=== PATIENT | male | born 1960 | race African-American/Black ===

== ENCOUNTER 2017-07-23 23:17 | Emergency (ER) | payer SELFPAY ==
[~2017-07-23] VITALS: Ht 182.9 cm; Wt 96.0 kg
[~2017-07-23 23:17] MED LIST: LISI10TA PO; MECL25 PO; VIST25CA PO
[2017-07-23 23:19] VITALS: BP 150/81; PULSE 98; RESP 16; TEMP 97.7; O2SAT 97
--- NOTE | 2017-07-24 00:29 | PD ---
HPI Chief Complaint: Back/ Neck Pain or Injury Time Seen by Provider: 00:01 Travel History International Travel<30 days: No Contact w/Intl Traveler<30days: No Traveled to known affect area: No History of Present Illness HPI This patient complains of low back pain. He says that he slipped and fell while in [employer]. His left leg slipped forward and his right stayed planted. No direct fall onto the back. Duration 1 hour. Symptoms severity is moderate. No neurologic complaint PFSH Past Medical History Depression: Yes Hypertension: Yes Migraines: Yes Tetanus Vaccination: < 5 Years Influenza Vaccination: No Past Surgical History Gynecologic Surgery: Yes (Prostate Cancer ) Other Surgery: Yes (RIGHT KNEE ARTHROSCOPY) Social History Alcohol Use: No Tobacco Use: Yes (1 ppd) Substance Use: No Allergies-Medications (Allergen,Severity, Reaction): Coded Allergies: No Known Allergies (Verified , 12/08/10) Reported Meds & Prescriptions Reported Meds & Active Scripts Active Vistaril (Hydroxyzine Pamoate) 25 Mg Cap 25 Mg PO Q 8 HRS PRN ANXIETY Antivert (Meclizine HCl) 25 Mg Tab 25 Mg PO QIDPRN Reported Lisinopril/Hctz 20/12.5 (HCTZ/Lisinopril) Tab 1 Tab PO DAILY Review of Systems General / Constitutional: No: Fever Eyes: No: Visual changes HENT: No: Headaches Cardiovascular: No: Chest Pain or Discomfort Respiratory: No: Shortness of Breath Gastrointestinal: No: Abdominal Pain Genitourinary: No: Dysuria Musculoskeletal: Positive: Pain Skin: No Rash Neurologic: No: Weakness Psychiatric: No: Depression Endocrine: No: Polydipsia Hematologic/Lymphatic: No: Easy Bruising Physical Exam Narrative GENERAL: Well-nourished, well-developed patient in no apparent distress. SKIN: Focused skin assessment reveals no rash and nodules. Skin is Warm and dry. HEAD: Atraumatic. Normocephalic. EYES: Pupils equal and round. No scleral icterus. No injection or drainage. ENT: No nasal bleeding or discharge. Mucous membranes pink and moist. NECK: Trachea midline. No JVD. CARDIOVASCULAR: Regular rate and rhythm. No murmur appreciated. RESPIRATORY: No accessory muscle use. Clear to auscultation. Breath sounds equal bilaterally. GASTROINTESTINAL: Abdomen soft, non-tender, nondistended. Hepatic and splenic margins not palpable. MUSCULOSKELETAL: No obvious deformities. No clubbing. No cyanosis. No edema. NEUROLOGICAL: Awake and alert. No obvious cranial nerve deficits. Motor grossly within normal limits. Normal speech. PSYCHIATRIC: Appropriate mood and affect; insight and judgment normal. Data Data Last Documented VS Vital Signs Date Time Temp Pulse Resp B/P (MAP) Pulse Ox O2 Delivery O2 Flow Rate FiO2 07/23/17 23:19 97.7 98 16 150/81 (104) 97 Room Air Orders Orders Spine, Lumbar - Ltd (Ap & Lat) (07/24/17 ) Ketorolac Inj (Toradol Inj) (07/24/17 00:30) MDM Medical Decision Making Medical Screen Exam Complete: Yes Emergency Medical Condition: Yes Medical Record Reviewed: Yes Differential Diagnosis Lumbar strain, sciatica, compression fracture Narrative Course I have reviewed the patient's electronic medical record. I reviewed his lumbar spine x-rays which show minor arthritic change but no fracture No objective findings on exam He is neurologically intact I gave him Toradol injection. Tramadol prescribed Diagnosis Primary Impression: Low back pain Qualified Codes: M54.5 - Low back pain Additional Instructions: The patient was advised to follow up with their physician and return if they worsen. The patient was warned about potential sedation for the medications they will receive on prescription. Med/Other Pt SpecificInfo: Prescription(s) given Scripts Tramadol (Tramadol) 50 Mg Tab 50 MG PO Q6H Y for PAIN, #20 TAB 0 Refills Prov: Rogelio Larsen MD 07/24/17 Disposition: 01 DISCHARGE HOME Condition: Stable Rogelio Larsen MD Jul 24, 2017 00:29
[2017-07-24] MEDS ORDERED: KETOROLAC TROMETHAMINE 60 MG/2 ML (IM) VIAL IM ONE (00:30)
--- NOTE | 2017-07-24 01:22 | RADRPT ---
EXAM DATE/TIME: 07/24/2017 01:04 [facility] COMPARISON: No previous studies available for comparison. INDICATIONS : Back pain from a slip and fall. MEDICAL HISTORY : None. SURGICAL HISTORY : None. ENCOUNTER: Initial ACUITY: 1 day PAIN SCORE: 10/10 LOCATION: Bilateral Back FINDINGS: Two view examination was performed. There are five non-rib bearing vertebral bodies. The vertebral bodies are in normal alignment without evidence of subluxation or scoliosis. The disc spaces are rudy ntained. The pedicles are intact. Bony mineralization is normal. No fracture is identified. CONCLUSION: 1. Mild degenerative disc disease. No acute fracture or spondylolisthesis. James Faustin MD on July 24, 2017 at 1:19 Board Certified Radiologist. This report was verified electronically.
[2017-07-24] MEDS ORDERED: TRAM50TA PO (01:45)
== END 2017-07-24 01:55 | disposition home or self-care (01) ==
LOC: NEPC 23:17
DX: M54.5 Low back pain (principal); F32.9 Major depressive disorder, single episode, unspecified; I10 Essential (primary) hypertension; F17.200 Nicotine dependence, unspecified, uncomplicated; Z79.899 Other long term (current) drug therapy
CPT/HCPCS: 72100; 96372; 99284; J1885

== ENCOUNTER 2017-11-21 00:43 | Emergency (ER) | payer SELFPAY ==
[~2017-11-21] VITALS: Ht 182.9 cm; Wt 103.1 kg
[~2017-11-21 00:43] MED LIST changes: +TRAM50TA PO
[2017-11-21 00:47] VITALS: BP 162/79; PULSE 63; TEMP 97.6
[2017-11-21] MEDS ORDERED: ATEN50TA PO (00:57)
--- NOTE | 2017-11-21 01:03 | PD ---
HPI Chief Complaint: Pain: Acute or Chronic Time Seen by Provider: 00:49 Travel History International Travel<30 days: No Contact w/Intl Traveler<30days: No Traveled to known affect area: No History of Present Illness HPI The patient is a 57-year-old female that complains of a cough for 4-5 days and has noted in the last day left anterior rib pain. It is difficult for him to sit up because of the pain and muscle attachments on those anterior lower ribs. He denies any fever. He smokes one pack a day. He is not short of breath. PFSH Past Medical History Depression: Yes Cardiovascular Problems: Yes Diminished Hearing: No Hypertension: Yes Migraines: Yes Tetanus Vaccination: Unknown Influenza Vaccination: No Past Surgical History Gynecologic Surgery: Yes (Prostate Cancer ) Other Surgery: Yes (RIGHT KNEE ARTHROSCOPY) Social History Alcohol Use: No Tobacco Use: Yes (1 ppd) Substance Use: No Allergies-Medications (Allergen,Severity, Reaction): Coded Allergies: No Known Allergies (Verified Adverse Reaction, Unknown, 11/21/17) Reported Meds & Prescriptions Reported Meds & Active Scripts Active Reported Atenolol 50 Mg Tab 50 Mg PO DAILY Review of Systems Except as stated in HPI: all other systems reviewed are Neg Physical Exam Narrative GENERAL: Well-nourished, well-developed patient. The patient's vital signs show blood pressure 162/79 but are otherwise normal. Oximetry is 97%. SKIN: Focused skin assessment warm/dry. No skin rash is seen. HEAD: Normocephalic. EYES: No scleral icterus. No injection or drainage. NECK: Supple, trachea midline. No JVD or lymphadenopathy. CARDIOVASCULAR: Regular rate and rhythm without murmurs, gallops, or rubs. RESPIRATORY: Breath sounds equal bilaterally. No accessory muscle use. Lungs clear to auscultation bilaterally. I can easily reproduce the patient's pain by pressing on the lower anterior ribs on the left. GASTROINTESTINAL: Abdomen soft, non-tender, nondistended. MUSCULOSKELETAL: No cyanosis, or edema. BACK: Nontender without obvious deformity. No CVA tenderness. Data Data Last Documented VS Vital Signs Date Time Temp Pulse Resp B/P (MAP) Pulse Ox O2 Delivery O2 Flow Rate FiO2 11/21/17 00:58 18 11/21/17 00:47 97.6 63 162/79 (106) Orders Orders Chest, Pa & Lat (11/21/17 00:59) [facility] Medical Decision Making Medical Screen Exam Complete: Yes Emergency Medical Condition: Yes Medical Record Reviewed: Yes Interpretation(s) The chest x-ray, PA and lateral shows no acute cardiopulmonary disease. Differential Diagnosis Left anterior rib fracture, pleurisy, pneumonia, pneumothorax, pneumothorax Narrative Course The patient likely has left anterior rib fractures. These fractures are noted area that is cartilaginous and will not show up as a fracture on plain x-ray. The patient appears to have a cough fracture. Impression: Cough fracture Plan: The patient be given Motrin 800 mg 3 times daily as well as Percocet 5/ 325 to take every 6 hours. He should not drink alcohol or drive on the Percocet. Diagnosis Primary Impression: Rib fracture Additional Impression: Viral upper respiratory infection Additional Instructions: As we discussed, take the Motrin regularly, 1 tablet 3 times daily. The Percocet is for pain but do not drink alcohol or drive on the Percocet. As we also discussed, discontinue smoking. Med/Other Pt SpecificInfo: Prescription(s) given Scripts Oxycodone-Acetaminophen (Percocet) 5-325 mg Tab 2 TAB PO Q4H Y for PAIN, #21 TAB 0 Refills Prov: Cirilo Escalante MD 11/21/17 Ibuprofen (Ibuprofen) 800 Mg Tab 800 MG PO TID, #33 TAB 0 Refills Prov: Cirilo Escalante MD 11/21/17 Disposition: 01 DISCHARGE HOME Condition: Stable Cirilo Escalante MD Nov 21, 2017 01:03
--- NOTE | 2017-11-21 01:21 | RADRPT ---
EXAM DATE/TIME: 11/21/2017 01:08 [facility] COMPARISON: No previous studies available for comparison. INDICATIONS : Cough, left sided chest pain for 4 days MEDICAL HISTORY : None. SURGICAL HISTORY : None. ENCOUNTER: Initial ACUITY: 4 - 6 days PAIN SCORE: 8/10 LOCATION: Left chest FINDINGS: PA and lateral views of the chest. Minimal diffuse reticular opacity. This finding is often seen in p atients with history of smoking. Minimal patchy opacity at the lateral left lung base likely represen ting atelectasis. Cardiomediastinal silhouette within normal limits. No evidence of pleural effusion or pneumothorax. CONCLUSION: No acute cardiopulmonary disease identified. Jose L Rachel MD on November 21, 2017 at 1:16 Board Certified Radiologist. This report was verified electronically.
[2017-11-21] MEDS ORDERED: PERC5TAB12 PO (01:40)
[2017-11-21] MEDS ORDERED: IBUP1TAB7 PO (01:40)
[2017-11-21] MEDS ORDERED: KETOROLAC TROMETHAMINE 60 MG/2 ML (IM) VIAL IM ONE (01:45)
[2017-11-21 02:19] VITALS: BP 162/78
== END 2017-11-21 02:31 | disposition home or self-care (01) ==
LOC: PHED 00:43
DX: S22.39XA Fracture of one rib, unspecified side, initial encounter for closed fracture (principal); J06.9 Acute upper respiratory infection, unspecified; I10 Essential (primary) hypertension; F32.9 Major depressive disorder, single episode, unspecified; F17.210 Nicotine dependence, cigarettes, uncomplicated; Z85.46 Personal history of malignant neoplasm of prostate
CPT/HCPCS: 71020; 96372; 99284; J1885

== ENCOUNTER 2017-12-18 10:36 | Emergency (ER) | payer SELFPAY ==
[~2017-12-18] VITALS: Ht 182.9 cm; Wt 97.5 kg
[~2017-12-18 10:36] MED LIST changes: +ATEN50TA PO; +IBUP1TAB7 PO; -LISI10TA PO; -MECL25 PO; +PERC5TAB12 PO; -TRAM50TA PO; -VIST25CA PO
[2017-12-18 10:38] VITALS: BP 167/78; PULSE 66; RESP 16; O2SAT 99
--- NOTE | 2017-12-18 11:22 | PD ---
HPI Chief Complaint: Foreign Body Time Seen by Provider: 11:21 Travel History International Travel<30 days: No Contact w/Intl Traveler<30days: No Traveled to known affect area: No History of Present Illness HPI 57-year-old Afro[place] male presents to the emergency Department with a knee , erythema, and tearing from the right eye upon awakening this morning. Patient has no history of injury or foreign body to the area. Patient does not wear contacts. He states vision is okay except for the photophobia. He denies any other symptoms. His pain is currently 8 out of 10. He has no known drug allergies. PFSH Past Medical History Depression: Yes Cardiovascular Problems: Yes Diminished Hearing: No Hypertension: Yes Migraines: Yes Past Surgical History Gynecologic Surgery: Yes (Prostate Cancer ) Other Surgery: Yes (RIGHT KNEE ARTHROSCOPY) Social History Alcohol Use: No Tobacco Use: Yes (1 ppd) Substance Use: No Allergies-Medications (Allergen,Severity, Reaction): Coded Allergies: No Known Allergies (Verified Adverse Reaction, Unknown, 11/21/17) Reported Meds & Prescriptions Reported Meds & Active Scripts Active Percocet (Oxycodone-Acetaminophen) 5-325 mg Tab 2 Tab PO Q4H PRN Ibuprofen 800 Mg Tab 800 Mg PO TID Reported Atenolol 50 Mg Tab 50 Mg PO DAILY Review of Systems Except as stated in HPI: all other systems reviewed are Neg General / Constitutional: No: Fever Eyes: Positive: Photophobia, Redness, Foreign Body Sensation, Pain, Tearing, No : Diploplia, Blurred Vision, Drainage, Blind Spots, Visual changes, Blindness HENT: No: Headaches Cardiovascular: No: Chest Pain or Discomfort Respiratory: No: Shortness of Breath Gastrointestinal: No: Abdominal Pain Genitourinary: No: Dysuria Musculoskeletal: No: Pain Skin: No Rash Neurologic: No: Weakness Psychiatric: No: Depression Endocrine: No: Polydipsia Hematologic/Lymphatic: No: Easy Bruising Physical Exam Narrative GENERAL: Patient appears in mild to moderate distress. SKIN: Warm and dry. Normal color. Normal turgor. No rash. HEAD: Atraumatic. Normocephalic. EYES: Pupils equal and round. No scleral icterus. Mild scleral injection on the right, With tearing. Patient has no purulent drainage. Cornea appears intact. Patient is noted to have a stye under the right upper inner eyelid. ENT: No nasal bleeding or discharge. Mucous membranes pink and moist. Pharynx is clear. Airway is patent NECK: Trachea midline. Supple nontender. CARDIOVASCULAR: Regular rate and rhythm. RESPIRATORY: No accessory muscle use. Clear to auscultation. Breath sounds equal bilaterally. MUSCULOSKELETAL: Extremities without clubbing, cyanosis, or edema. No obvious deformities. NEUROLOGICAL: Awake and alert. No obvious cranial nerve deficits. Motor grossly within normal limits. Five out of 5 muscle strength in the arms and legs. Normal speech. PSYCHIATRIC: Appropriate mood and affect; insight and judgment normal. Data Data Last Documented VS Vital Signs Date Time Temp Pulse Resp B/P (MAP) Pulse Ox O2 Delivery O2 Flow Rate FiO2 12/18/17 10:38 66 16 167/78 (107) 99 MDM Medical Decision Making Medical Screen Exam Complete: Yes Emergency Medical Condition: Yes Differential Diagnosis Conjunctivitis. Corneal abrasion. Foreign body. Stye. Narrative Course Patient is felt to be medically stable at time of exam. Patient is treated with erythromycin ophthalmic ointment to the right eye every 4 hours while awake for the next 7 days. Patient also given ibuprofen 800 mg 3 times daily with food #30. Patient can take Tylenol as well. Recommend hot compresses to the right eye frequently as well. Patient follow with program admin if symptoms worsen. Diagnosis Primary Impression: Hordeolum internum right upper eyelid Referrals: [employer] Patient Instructions: General Flakito Sapp (ED) Departure Forms: Work Release Enter return to work date: Dec 19, 2017 Additional Instructions: Patient is felt to be medically stable at time of exam. Patient is treated with erythromycin ophthalmic ointment to the right eye every 4 hours while awake for the next 7 days. Patient also given ibuprofen 800 mg 3 times daily with food #30. Patient can take Tylenol as well. Recommend hot compresses to the right eye frequently as well. Patient follow with program admin if symptoms worsen. Med/Other Pt SpecificInfo: Prescription(s) given Disposition: 01 DISCHARGE HOME Condition: Stable Alberto Bedoya Dec 18, 2017 11:22
[2017-12-18] MEDS ORDERED: IBUP1TAB7 PO (11:32)
[2017-12-18] MEDS ORDERED: ERYTOIN10 RIGHT EYE (11:32)
[2017-12-18] MEDS ORDERED: ERYTHROMYCIN 0.5% OPTH OINT 3.5 GM TUBO RIGHT EYE ONE (11:45)
[2017-12-18] MEDS ORDERED: IBUPROFEN 800 MG TAB PO ONE (11:45)
== END 2017-12-18 12:16 | disposition home or self-care (01) ==
LOC: NEPK 10:36
DX: H00.021 Hordeolum internum right upper eyelid (principal); F32.9 Major depressive disorder, single episode, unspecified; I10 Essential (primary) hypertension; F17.200 Nicotine dependence, unspecified, uncomplicated
CPT/HCPCS: 99283

== ENCOUNTER 2018-01-14 00:13 | Emergency (ER) | payer SELFPAY ==
[~2018-01-14 00:13] MED LIST changes: +ERYTOIN10 RIGHT EYE
[2018-01-14 00:17] VITALS: BP 165/79; PULSE 74; RESP 18; TEMP 98.7; O2SAT 97
[2018-01-14] MEDS ORDERED: PROM6.256 PO (02:26)
[2018-01-14] MEDS ORDERED: OSEL75 PO (02:26)
[2018-01-14] MEDS ORDERED: ALBUAER3 INH (02:26)
== END 2018-01-14 00:59 | disposition left against medical advice (07) ==
LOC: NED 00:13
DX: Z53.21 Procedure and treatment not carried out due to patient leaving prior to being seen by health care provider (principal)
CPT/HCPCS: 99281

== ENCOUNTER 2018-01-14 01:18 | Emergency (ER) | payer OTHER ==
[~2018-01-14] VITALS: Ht 180.3 cm; Wt 99.2 kg
[2018-01-14 01:23] VITALS: BP 181/85; PULSE 82; RESP 24; TEMP 100.9; O2SAT 98
--- NOTE | 2018-01-14 01:41 | PD ---
HPI Chief Complaint: Cold / Flu Symptoms Time Seen by Provider: 01:28 Travel History International Travel<30 days: No Contact w/Intl Traveler<30days: No Traveled to known affect area: No History of Present Illness HPI The patient is a 57-year-old [place] male who presents to the emergency department for cough and cold symptoms of one days duration. The patient points of headache, congestion, productive cough producing white to yellow sputum, shortness of breath, and wheezing. The patient does have a history of tobacco use, but has not been smoking over the last 24 hours secondary to his current symptoms. He does note subjective fevers without chills or sweats. He does complain of mild nausea. There is been no vomiting, diarrhea, abdominal pain, or dysuria. He does complain of myalgias. Symptoms are moderate. There are no current alleviating or exacerbating factors. He did take ibuprofen earlier today at approximately 8 PM. PFSH Past Medical History Depression: Yes Cardiovascular Problems: Yes Diminished Hearing: No Hypertension: Yes Migraines: Yes Past Surgical History Gynecologic Surgery: Yes (Prostate Cancer ) Other Surgery: Yes (RIGHT KNEE ARTHROSCOPY) Social History Alcohol Use: No Tobacco Use: Yes (1 ppd) Substance Use: No Allergies-Medications (Allergen,Severity, Reaction): Coded Allergies: No Known Allergies (Verified Adverse Reaction, Unknown, 01/14/18) Reported Meds & Prescriptions Reported Meds & Active Scripts Active Ibuprofen 800 Mg Tab 800 Mg PO Q8H PRN Erythromycin Opth Oint 5 Mg/Gm Oint 1 Applic RIGHT EYE QID Percocet (Oxycodone-Acetaminophen) 5-325 mg Tab 2 Tab PO Q4H PRN Ibuprofen 800 Mg Tab 800 Mg PO TID Reported Atenolol 50 Mg Tab 50 Mg PO DAILY Review of Systems Except as stated in HPI: all other systems reviewed are Neg General / Constitutional: Positive: Fever, No: Chills HENT: Positive: Congestion, Earache Cardiovascular: No: Chest Pain or Discomfort Respiratory: Positive: Cough, Wheezing Gastrointestinal: Positive: Nausea, No: Vomiting, Diarrhea, Abdominal Pain Genitourinary: No: Dysuria Musculoskeletal: Positive: Myalgias Physical Exam Narrative GENERAL: Awake, alert, pleasant 57-year-old male who appears his stated age and is in no acute respiratory distress. SKIN: Focused skin assessment warm/dry. HEAD: Atraumatic. Normocephalic. EYES: Pupils equal and round. No scleral icterus. No injection or drainage. ENT: No nasal bleeding or discharge. Oropharynx reveals mild erythema but no exudate.. NECK: Trachea midline. No JVD. CARDIOVASCULAR: Regular rate and rhythm. No murmur appreciated. Heart rate in the 80s. RESPIRATORY: Respiratory rate of 22. Diminished breath sounds with diffuse wheezing noted. GASTROINTESTINAL: Abdomen soft, non-tender, nondistended. No rebound tenderness. MUSCULOSKELETAL: No obvious deformities. No clubbing. No cyanosis. No edema. Calves are soft bilaterally. NEUROLOGICAL: Awake and alert. No obvious cranial nerve deficits. Motor grossly within normal limits. Normal speech. PSYCHIATRIC: Appropriate mood and affect; insight and judgment normal. Data Data Last Documented VS Vital Signs Date Time Temp Pulse Resp B/P (MAP) Pulse Ox O2 Delivery O2 Flow Rate FiO2 01/14/18 02:05 97 Room Air 01/14/18 01:23 100.9 82 24 181/85 (117) Orders Orders Complete Blood Count With Diff (01/14/18 01:34) Comprehensive Metabolic Panel (01/14/18 01:34) B-Type Natriuretic Peptide (01/14/18 01:34) Magnesium (Mg) (01/14/18 01:34) Influenzae A/B Antigen (01/14/18 01:34) Iv Access Insert/Monitor (01/14/18 01:34) Ecg Monitoring (01/14/18 01:34) Oximetry (01/14/18 01:34) Oxygen Administration (01/14/18 01:34) Chest, Single Ap (01/14/18 01:34) Sodium Chloride 0.9% Flush (Ns Flush) (01/14/18 01:45) Methylprednisolone So Succ Inj (Solumedr (01/14/18 01:45) Albuterol-Ipratropium Neb (Duoneb Neb) (01/14/18 01:45) Lactic Acid (01/14/18 01:34) Acetaminophen (Tylenol) (01/14/18 01:45) Sodium Chlorid 0.9% 500 Ml Inj (Ns 500 M (01/14/18 01:45) Electrocardiogram (01/14/18 ) Lidocaine Pf 4% Neb (Lidocaine Pf 4% Neb (01/14/18 02:00) Labs Laboratory Tests Test 01/14/18 01:52 White Blood Count 8.1 TH/MM3 Red Blood Count 5.43 MIL/MM3 Hemoglobin 15.6 GM/DL Hematocrit 44.7 % Mean Corpuscular Volume 82.3 FL Mean Corpuscular Hemoglobin 28.7 PG Mean Corpuscular Hemoglobin Concent 34.8 % Red Cell Distribution Width 13.2 % Platelet Count 253 TH/MM3 Mean Platelet Volume 7.2 FL Neutrophils (%) (Auto) 76.5 % Lymphocytes (%) (Auto) 15.3 % Monocytes (%) (Auto) 7.1 % Eosinophils (%) (Auto) 0.7 % Basophils (%) (Auto) 0.4 % Neutrophils # (Auto) 6.2 TH/MM3 Lymphocytes # (Auto) 1.2 TH/MM3 Monocytes # (Auto) 0.6 TH/MM3 Eosinophils # (Auto) 0.1 TH/MM3 Basophils # (Auto) 0.0 TH/MM3 CBC Comment DIFF FINAL Differential Comment Blood Urea Nitrogen 14 MG/DL Creatinine 1.20 MG/DL Random Glucose 106 MG/DL Total Protein 7.6 GM/DL Albumin 3.8 GM/DL Calcium Level 8.5 MG/DL Magnesium Level 2.3 MG/DL Alkaline Phosphatase 78 U/L Aspartate Amino Transf (AST/SGOT) 25 U/L Alanine Aminotransferase (ALT/SGPT) 40 U/L Total Bilirubin 0.4 MG/DL Sodium Level 139 MEQ/L Potassium Level 4.3 MEQ/L Chloride Level 108 MEQ/L Carbon Dioxide Level 22.2 MEQ/L Anion Gap 9 MEQ/L Estimat Glomerular Filtration Rate 76 ML/MIN Lactic Acid Level 1.4 mmol/L [facility] Medical Decision Making Medical Screen Exam Complete: Yes Emergency Medical Condition: Yes Medical Record Reviewed: Yes Interpretation(s) EKG reveals normal sinus rhythm with a rate 84. Nonspecific T wave changes. Last Impressions Chest X-Ray 01/14/18 0134 Signed Impressions: Service Date/Time: Sunday, January 14, 2018 01:41 - CONCLUSION: No acute disease. Gio Babcock MD Laboratory Tests Test 01/14/18 01:52 White Blood Count 8.1 TH/MM3 Red Blood Count 5.43 MIL/MM3 Hemoglobin 15.6 GM/DL Hematocrit 44.7 % Mean Corpuscular Volume 82.3 FL Mean Corpuscular Hemoglobin 28.7 PG Mean Corpuscular Hemoglobin Concent 34.8 % Red Cell Distribution Width 13.2 % Platelet Count 253 TH/MM3 Mean Platelet Volume 7.2 FL Neutrophils (%) (Auto) 76.5 % Lymphocytes (%) (Auto) 15.3 % Monocytes (%) (Auto) 7.1 % Eosinophils (%) (Auto) 0.7 % Basophils (%) (Auto) 0.4 % Neutrophils # (Auto) 6.2 TH/MM3 Lymphocytes # (Auto) 1.2 TH/MM3 Monocytes # (Auto) 0.6 TH/MM3 Eosinophils # (Auto) 0.1 TH/MM3 Basophils # (Auto) 0.0 TH/MM3 CBC Comment DIFF FINAL Differential Comment Blood Urea Nitrogen 14 MG/DL Creatinine 1.20 MG/DL Random Glucose 106 MG/DL Total Protein 7.6 GM/DL Albumin 3.8 GM/DL Calcium Level 8.5 MG/DL Magnesium Level 2.3 MG/DL Alkaline Phosphatase 78 U/L Aspartate Amino Transf (AST/SGOT) 25 U/L Alanine Aminotransferase (ALT/SGPT) 40 U/L Total Bilirubin 0.4 MG/DL Sodium Level 139 MEQ/L Potassium Level 4.3 MEQ/L Chloride Level 108 MEQ/L Carbon Dioxide Level 22.2 MEQ/L Anion Gap 9 MEQ/L Estimat Glomerular Filtration Rate 76 ML/MIN Lactic Acid Level 1.4 mmol/L Differential Diagnosis Differential diagnosis includes influenza, pneumonia, bronchitis, congestive heart failure, pleural effusion, pulmonary edema, URI, viral syndrome. Narrative Course IV was established, labs are drawn and sent, and the patient was placed on cardiac telemetry monitoring and continuous pulse oximetry monitoring. Chest x- ray was obtained. Influenza screen was sent to lab. The patient was administered Solu-Medrol 125 mg intravenously, duo nebs, and IV fluids. Chest x -rays unremarkable. EKG reveals normal sinus rhythm with nonspecific T wave changes. White count is normal. Lactic acid is unremarkable. Influenza screen is positive for influenza A. The patient will be treated with Tamiflu, albuterol inhaler, and Phenergan With Codeine. He is advised to follow-up with his primary physician. Return if symptoms worsen or progress. Diagnosis Primary Impression: Influenza A Patient Instructions: General Instructions Additional Instructions: Medications as directed. Follow-up with your primary physician. Alternate Tylenol and Motrin for pain and fever. Return if symptoms worsen or progress. Med/Other Pt SpecificInfo: Prescription(s) given Scripts Albuterol 8.5 GM Inh (Proair Hfa 8.5 GM Inh) 90 Mcg/Act Aer 2 PUFF INH Q6H Y for SHORTNESS OF BREATH, #1 INHALER 0 Refills 108 mcg/actuation Prov: Jason Mcclure MD 01/14/18 Oseltamivir (Tamiflu) 75 Mg Cap 75 MG PO BID for Mgmt Viral Infection for 5 Days, #10 CAP 0 Refills Prov: Jason Mcclure MD 01/14/18 Promethazine-Codeine Liq (Promethazine-Codeine Liq) 6.25-10 Mg/5 Ml Syrp 10 ML PO Q6H Y for COUGH AND/OR COLD SYMPTOMS, #120 ML 0 Refills Prov: Jason Mcclure MD 01/14/18 Disposition: 01 DISCHARGE HOME Condition: Stable Jason Mcclure MD Jan 14, 2018 01:41
[2018-01-14] MEDS ORDERED: SODIUM CHLORIDE 0.9% FLUSH 10 ML FLUSH IVF PRN (01:45)
[2018-01-14] MEDS ORDERED: ACETAMINOPHEN 325 MG TAB PO ONE (01:45)
[2018-01-14] MEDS ORDERED: SODIUM CHLORID 0.9% 500 ML INJ 500 ML IV ONE (01:45)
[2018-01-14] MEDS ORDERED: methylPREDNISolone SOD SUCC 125 MG/2 ML VIAL IV PUSH ONE (01:45)
[2018-01-14] MEDS: RESP: ALBUTEROL 2.5 MG/IPRATROPIUM 0.5 MG NEB (SCH) INH ×2 (01:46→01:47)
[2018-01-14] MEDS ORDERED: RESP: LIDOCAINE HCL 4% PF 5 ML NEB NEB ONE (02:00)
[2018-01-14 02:02] LABS: AUTOMATED NEUTROPHIL # 6.2 TH/MM3 (1.8-7.7); BASOPHIL % 0.4 % (0.0-2.0); EOSINOPHIL # 0.1 TH/MM3 (0-0.4); EOSINOPHIL % 0.7 % (0.0-4.0); HEMATOCRIT 44.7 % (39.0-51.0); HEMOGLOBIN 15.6 GM/DL (13.0-17.0); LYMPH % 15.3 % (9.0-44.0); LYMPHOCYTE # 1.2 TH/MM3 (1.0-4.8); MEAN CELL VOLUME 82.3 FL (80.0-100.0); MEAN CORPUSCULAR HEMOGLOBIN 28.7 PG (27.0-34.0); MEAN CORPUSCULAR HGB CONC 34.8 % (32.0-36.0); MEAN PLATELET VOLUME 7.2 FL (7.0-11.0); MONO % 7.1 % (0.0-8.0); MONOCYTE # 0.6 TH/MM3 (0-0.9); NEUT % 76.5 % (16.0-70.0); PLATELET COUNT 253 TH/MM3 (150-450); RED BLOOD COUNT 5.43 MIL/MM3 (4.50-5.90); RED CELL DISTRIBUTION WIDTH 13.2 % (11.6-17.2); WHITE BLOOD COUNT 8.1 TH/MM3 (4.0-11.0)
[2018-01-14 02:05] VITALS: O2SAT 97
[2018-01-14 02:09] LABS: CHLORIDE 108 MEQ/L (98-107); SODIUM (NA) 139 MEQ/L (136-145)
--- NOTE | 2018-01-14 02:12 | RADRPT ---
EXAM DATE/TIME: 01/14/2018 01:41 [facility] COMPARISON: No previous studies available for comparison. INDICATIONS : Short of breath. MEDICAL HISTORY : None. SURGICAL HISTORY : None. ENCOUNTER: Initial ACUITY: 1 day PAIN SCORE: 4/10 LOCATION: Bilateral chest FINDINGS: A single view of the chest demonstrates the lungs to be symmetrically aerated without evidence of mas s, infiltrate or effusion. The cardiomediastinal contours are unremarkable. Osseous structures are intact. CONCLUSION: No acute disease. Gio Babcock MD on January 14, 2018 at 2:11 Board Certified Radiologist. This report was verified electronically.
[2018-01-14 02:13] LABS: ALBUMIN 3.8 GM/DL (3.4-5.0); BICARBONATE 22.2 MEQ/L (21.0-32.0); BLOOD UREA NITROGEN 14 MG/DL (7-18); CALCIUM 8.5 MG/DL (8.5-10.1); GLUCOSE,RANDOM 106 MG/DL (74-106); MAGNESIUM 2.3 MG/DL (1.5-2.5)
[2018-01-14 02:16] LABS: ALT (GPT) 40 U/L (12-78); AST (GOT) 25 U/L (15-37); GLOMERULAR FILTRATION RATE 76 ML/MIN (>89)
[2018-01-14 02:18] LABS: TOTAL BILIRUBIN ADULT 0.4 MG/DL (0.2-1.0); TOTAL PROTEIN 7.6 GM/DL (6.4-8.2)
[2018-01-14 02:19] LABS: ALKALINE PHOSPHATASE 78 U/L (45-117)
[2018-01-14] MEDS ORDERED: PROM6.256 PO (02:26)
[2018-01-14] MEDS ORDERED: ALBUAER3 INH (02:26)
[2018-01-14] MEDS ORDERED: OSEL75 PO (02:26)
[2018-01-14 02:46] VITALS: BP 132/69; TEMP 98.8
--- NOTE | 2018-01-14 07:54 | EKG ---
Date Performed: 01/14/2018 Time Performed: 02:08:52 PTAGE: 57 years EKG: Sinus rhythm POSSIBLE LEFT ATRIAL ENLARGEMENT NONSPECIFIC T-WAVE ABNORMALITY BORDERLINE ECG PREVIOUS TRACING : 02/25/2013 22.04 DOCTOR: Zachery Borrero Interpretating Date/Time 01/14/2018 07:51:27
== END 2018-01-14 02:49 | disposition home or self-care (01) ==
LOC: PHED 01:18
DX: J09.X2 Influenza due to identified novel influenza A virus with other respiratory manifestations (principal); R94.31 Abnormal electrocardiogram [ECG] [EKG]; F32.9 Major depressive disorder, single episode, unspecified; I10 Essential (primary) hypertension; F17.210 Nicotine dependence, cigarettes, uncomplicated
CPT/HCPCS: 71045; 80053; 83605; 83735; 83880; 85025; 87804; 93005; 94640; 94664; 96374; 99285; J2930; J7040